=== PATIENT | female | born 1950 | race African-American/Black ===

== ENCOUNTER 2019-01-16 18:07 | Inpatient (IN) | payer MEDICARE ==
--- NOTE | 2019-01-16 18:52 | ED Physician Chart ---
ED Chief Complaint/HPI - Patient Information Date Seen:: 01/16/19 Time Seen:: 18:20 Chief Complaint:: Depression History of Present Illness:: onset x 2 days of depression and decreased activity; no report of trauma, SIs, H /As, S/T, neck pain, C/P, SOB, Abd. Pain, A/N/V/D/C, fever, chills, or urinary s /s Allergies:: Allergies Allergy/AdvReac Type Severity Reaction Status Date / Time No Known Allergies Allergy Verified 01/16/19 18:21 Vitals:: Vital Signs - 8 hr 01/16/19 18:21 Temp 98.1 F HR 84 RR 17 BP 129/71 O2 Sat % 94 Historian:: Patient, EMS Review:: Nurse's Note Reviewed, Old Chart Reviewed, EMS run form Reviewed ED Review of Systems - Review of Systems General/Constitutional: No fever, No chills, No weight loss, No weakness, No diaphoresis, No edema, No loss of appetite Skin: No skin lesions, No rash, No bruising Head: No headache, No light-headedness Eyes: No loss of vision, No pain, No diplopia ENT: No earache, No nasal drainage, No sore throat, No tinnitus Neck: No neck pain, No swelling, No thyromegaly, No stiffness, No mass noted Cardio Vascular: No chest pain, No palpitations, No PND, No orthopnea, No edema Pulmonary: No SOB, No cough, No sputum, No wheezing GI: No nausea, No vomiting, No diarrhea, No pain, No melena, No hematochezia, No constipation, No hematemesis G/U: No dysuria, No frequency, No hematuria, No nacturia Safety Sealer: No vaginal discharge, No abnormal vaginal bleed, No contraction Musculoskeletal: No bone or joint pain, No back pain, No muscle pain Endocrine: No polyuria, No polydipsia Psychiatric: Prior psych history, Depression, Anxiety, No suicidal ideation, No homicidal ideation, No auditory hallucination, No visual hallucination Hematopoietic: No bruising, No lymphadenopathy Allergic/Immuno: No urticaria, No angioedema Neurological: No syncope, No focal symptoms, No weakness, No paresthesia, No headache, Seizure, No dizziness, No confusion, No vertigo ED Past Medical History - Past Medical History Obtainable: Yes Past Medical History: HTN, Seizures Family History: HTN Social History: Non Smoker, No Alcohol, No Drug Use, Single, Care Facility Surgical History: None Psychiatricy History: Depression Medication: Reviewed Family Medical History - Family Member Mother History Unknown: Yes ED Physical Exam - Physical Examination General/Constitutional: Awake, Well-developed, well-nourished, Alert, No distress, GCS 15, Non-toxic appearing, Ambulatory Head: Atraumatic Eyes: Lids, conjuctiva normal, PERRL, EOMI Skin: Nl inspection, No rash, No skin lesions, No ecchymosis, Well hydrated, No lymphadenopathy ENMT: External ears, nose nl, TM canals nl, Nasal exam nl, Lips, teeth, gums nl , Oropharynx nl, Tonsils nl Neck: Nontender, Full ROM w/o pain, No JVD, No nuchal rigidity, No bruit, No mass, No stridor Respiratory: Nl effort/Exclusion, Clear to Auscultation, No Wheeze/Rhonchi/Rales Cardio Vascular: RRR, No murmur, gallop, rubs, NL S1 S2, Carotid/Femoral/Distal pulses equal bilaterally GI: No tenderness/rebounding/guarding, No organomegaly, No hernia, Normal BS's, Nondistended, No mass/bruits, No McBurney tenderness : No CVA tenderness Extremities: No tenderness or effusion, Full ROM, normal strength in all extremities, No edema, Normal digits & nails Neuro/Psych: Alert/oriented, DTR's symmetric, Normal sensory exam, Normal motor strength, Judgement/insight normal, Mood normal, Normal gait, No focal deficits Other Neuro/Psych comments:: + Psychomotor Retardation; no SIs; Mood/Affect: Labile Misc: Normal back, No paraspinal tenderness ED Septic Shock - . Is Septic Shock (SBP<90, OR Lactate>4 mmol\L) present?: No - <6hrs of presentation: Vital Signs: Vital Signs - 8 hr 01/16/19 18:21 Temp 98.1 F HR 84 RR 17 BP 129/71 O2 Sat % 94 ED Reassessment (Disposition) - Reassessment Reassessment Condition:: Improved - Diagnosis Diagnosis:: Depression; Medical Clearance
[2019-01-16 19:00] LABS: % BASOPHILS 0.3 % (0.0-2.0); % EOSINOPHILS 5.1 % (0.0-5.0); % LYMPHOCYTES 26.1 % (20.0-50.0); % MONOCYTES 7.6 % (2.0-10.0); % NEUTROPHILS 60.9 % (40.0-80.0); EOSINOPHILE ABSOLUTE 0.3 Th/cmm (0.1-0.4); HEMATOCRIT 38.4 % (41.0-60); HEMOGLOBIN 12.8 gm/dL (12-16); LYMPHOCYTE ABSOLUTE 1.6 Th/cmm (1.5-3.0); MEAN CELL VOLUME 88.2 fl (81-100); MEAN CORPUSCULAR HEMOGLOBIN 29.4 pg (27.0-31.0); MEAN CORPUSCULAR HGB CONC 33.4 pg (28.0-36.0); MONOCYTE ABSOLUTE 0.5 Th/cmm (0.3-1.0); NEUTROPHILE ABSOLUTE 3.9 Th/cmm (1.8-8.0); PLATELET COUNT 256 Th/cmm (150-400); RED BLOOD COUNT 4.35 Mil/cmm (3.80-5.20); RED CELL DISTRIBUTION WIDTH 12.7 % (11.5-20.0); WHITE BLOOD COUNT 6.3 Th/cmm (4.8-10.8)
[2019-01-16 19:21] LABS: ALB/GLOB RATIO 1.1 (1.0-1.8); ALBUMIN 3.4 gm/dL (3.7-5.3); ALKALINE PHOSPHATASE 103 U/L (34-104); ANION GAP 10.6 (7.0-16.0); BILIRUBIN,TOTAL 0.2 mg/dL (0.3-1.0); BUN - UREA NITROGEN 11 mg/dL (7-25); CALCIUM SERUM 8.9 mg/dL (8.6-10.3); CARBON DIOXIDE 27.1 mEq/L (21.0-31.0); CHLORIDE 104 mEq/L (98-107); CHOLESTEROL 155 mg/dL (<200); CREATININE - SERUM 0.5 mg/dL (0.6-1.2); GFR AFRICAN-AMERICAN > 60.0 ml/min (>90); GFR NON AFRICAN-AMERICAN > 60.0 ml/min; GLUCOSE 112 mg/dL (70-105); HDL -HIGH DENSITY LIPOPROTEIN 54 mg/dL (23-92); POTASSIUM SERUM 3.7 mEq/L (3.5-5.1); SGOT 12 U/L (13-39); SGPT/ALT 5 U/L (7-52); SODIUM SERUM 138 mEq/L (136-145); TOTAL PROTEIN,SERUM 6.6 gm/dL (6.0-8.3); TRIGLYCERIDES 87 mg/dL (<150)
[2019-01-16 19:22] LABS: ACETAMINOPHEN < 10.0 ug/mL (10.0-30.0)
[2019-01-16] MEDS ORDERED: Maalox 30 mL Cup PO PRN (21:37)
[2019-01-16] MEDS ORDERED: Magnesium Hydroxide (MOM) 30 mL UDC PO PRN (21:37)
[2019-01-16 21:54] VITALS: BP 124/71
[2019-01-17] MEDS: Levothyroxine 0.088 Mg Tab PO SCH (06:44)
[2019-01-17 08:08] LABS: A1C 5.7 % (4.8-5.6)
[2019-01-17] MEDS: Multivitamin w/ Minerals Tab PO SCH (08:55)
[2019-01-17] MEDS ORDERED: PRUNE JUICE PO SCH (09:00)
--- NOTE | 2019-01-17 16:32 | Psychiatric Evaluation ---
DATE OF SERVICE: 01/17/2019 IDENTIFYING INFORMATION: The patient is a 68-year-old female. CHIEF COMPLAINT: "I don't know." HISTORY OF PRESENT ILLNESS: The patient was referred for admission because of depression. The patient was a very poor historian. She is not sure why she is here. She is unable to participate in any meaningful conversation. Apparently, she is blind, she was unsure of the date of her age, if she has children or why she is here. According to records, there is history of depression. The patient has been on gabapentin 300 mg 3 times a day, amantadine 100 mg daily, levothyroxine, Keppra with a history of seizure disorder, Namenda 5 mg twice a day, multivitamin, Risperdal 0.5 mg daily and 1 mg at bedtime. PAST PSYCHIATRIC HISTORY: The patient unable to give any information. MEDICAL HISTORY: Deferred to the medical dr The patient is blind, has a seizure disorder, hypothyroidism and possible parkinsonism. ALLERGIES: She has had no known drug allergy. FAMILY AND SOCIAL HISTORY: The patient is unable to tell me, she is unable to participate in meaningful conversation. MENTAL STATUS EXAMINATION: The patient is appropriately dressed. She is in bed. She was alert, but she was unable to engage in any information. She does not report anything every question she does not know, does not know if she has children, if she is or the date, where she is, why she is here, what she does for living. Her long and short term memory is poor. Insight and judgment is impaired. I was unable to do a formal mental status exam on her because of her dementia and confusion. Her insight and judgment is impaired. IMPRESSION: Psychosis, not otherwise specified, rule out depression with psychosis. MEDICAL DIAGNOSES: Deferred to the medical doctor. PLAN: The patient will continue with the medication. We will do group therapy, milieu therapy, and individual therapy. ESTIMATED LENGTH OF STAY: 3-7 days. DISCHARGE CRITERIA: Decreasing agitation, psychosis, depression after discharge. JOB# [id number] WALTER
--- NOTE | 2019-01-17 20:24 | Consultation ---
DATE OF CONSULTATION: INTERNAL MEDICINE CONSULTATION REFERRING PHYSICIAN: Dr. Pearl. REASON FOR CONSULTATION: Medical management. HISTORY OF PRESENT ILLNESS: This is a 68-year-old -[place] female with history of mood psych disorder, Parkinson's disease, hypothyroidism, essential hypertension, seizure disorder, recurrent ileus, who was transferred to this facility via the ER for psych decompensation. The patient resides at [facility] and overall she is a poor historian and unable to provide me with any major history. The patient states that she feels well and that she does not have any medical problems. PAST MEDICAL HISTORY: As noted above. Chronic ileus and history of small-bowel obstruction. PAST SURGICAL HISTORY: Unknown, but none reported. FAMILY HISTORY: Likely noncontributory to this admission. SOCIAL HISTORY: There is no report of smoking, ETOH, or illicit drug usage. She lives at a care facility. ALLERGIES: NKDA. OUTPATIENT MEDICATIONS: Milk of magnesia 30 mL every day, amantadine 100 mg every day, Cogentin 0.5 b.i.d., Dulcolax 10 mg suppository daily as needed, Sinemet 25-100 t.i.d., Colace 100 mg b.i.d., gabapentin 300 t.i.d., Vimpat 200 mg b.i.d., Keppra 1500 mg b.i.d., Synthroid 88 mcg every day, loratadine 10 mg every day, Namenda 5 mg b.i.d., metoprolol 12.5 mg q.12 hours, multivitamins every day, Risperdal 0.5 every day. REVIEW OF SYSTEMS: CONSTITUTIONAL: The patient denies any fever or chills. No recent ailments. CARDIOVASCULAR: Denies any chest pain, palpitations. PULMONARY: Denies any cough or phlegm production, shortness of breath. GASTROINTESTINAL: Denies any constipation, any abdominal pain, any nausea, vomiting, diarrhea. GENITOURINARY: No bladder habit changes including no UTI symptomatology. NEUROLOGIC: Denies any recent seizure activity. Denies any syncope. PHYSICAL EXAMINATION: VITAL SIGNS: Temperature 98.2, pulse 85, respirations 20, BP 113/70, satting 97% on room air. GENERAL: She is a well-developed mildly obese female, who is currently lying in bed, nontoxic appearing. The patient is able to answer simple questions with yes and no. HEAD: Normocephalic, atraumatic. NECK: There is no JVD or LAD. CARDIAC: Regular rate and rhythm with no murmurs. S1, S2 are present. No murmurs are appreciated. LUNGS: Clear to auscultation bilaterally. ABDOMEN: Soft, supple, nontender, nondistended, normoactive bowel sounds. EXTREMITIES: On lower extremities, he has no pedal edema. NEUROLOGIC: Grossly nonfocal with cranial nerves 2-12 are within normal limits. Full exam cannot be done at this time. LABORATORY DATA: CBC was essentially within normal limits. Chem-7 shows a glucose of 112, otherwise within normal limits. LFTs were within normal limits. Troponins were negative x 1 set. Albumin 3.4. DIAGNOSTICS: EKG, sinus rhythm at a rate of 76. ASSESSMENT: 1. Acute psych decompensation. 2. History of psychosis/mood disorder. 3. Parkinson's disease. 4. Seizure disorder. 5. Legally blind. 6. History of small bowel obstruction/chronic ileus. 7. Essential hypertension. 8. Hypothyroidism. 9. Chronic physical debility. PLAN: The patient has been admitted to [facility] for management and care. The patient will be kept on all her current home meds as scheduled. We will follow UA results which have not been collected yet. JOB# [id number]
[2019-01-18] MEDS: Levothyroxine 0.088 Mg Tab PO SCH (06:57)
[2019-01-18] MEDS: Multivitamin w/ Minerals Tab PO SCH (08:37)
--- NOTE | 2019-01-18 14:48 | Progress Notes ---
DATE: 01/18/2019 Case was discussed with staff of the patient, reviewed records. The patient continues to isolate herself, staying in her room. She is unable to participate in meaningful conversation, though she is able to stay more than "I don't know today." No side effects to the medication, no sedation, no nausea, no extrapyramidal symptoms. We will continue to work with the patient in group therapy, milieu therapy, and adjust medications as needed. [facility]# [id number]
[2019-01-19] MEDS: Levothyroxine 0.088 Mg Tab PO SCH (06:55)
[2019-01-19] MEDS: Multivitamin w/ Minerals Tab PO SCH (09:33)
--- NOTE | 2019-01-19 10:29 | Internal Medicine Prog Note ---
Internal Medicine Subjective - Subjective Service Date: 01/19/19 (COMFORTABLE, NO ACUTE EVENTS) Patient seen and examined:: without staff Patient is:: awake Per staff patient has:: no adverse event Internal Medicine Objective - Results Result Diagrams: 01/16/19 18:45 01/16/19 18:45 Recent Labs: Laboratory Last Values WBC 6.3 Th/cmm (4.8-10.8) 01/16/19 18:45 RBC 4.35 Mil/cmm (3.80-5.20) 01/16/19 18:45 Hgb 12.8 gm/dL (12-16) 01/16/19 18:45 Hct 38.4 % (41.0-60) L 01/16/19 18:45 MCV 88.2 fl (81-100) 01/16/19 18:45 MCH 29.4 pg (27.0-31.0) 01/16/19 18:45 MCHC Differential 33.4 pg (28.0-36.0) 01/16/19 18:45 RDW 12.7 % (11.5-20.0) 01/16/19 18:45 Plt Count 256 Th/cmm (150-400) 01/16/19 18:45 MPV 8.8 fl 01/16/19 18:45 Neutrophils % 60.9 % (40.0-80.0) 01/16/19 18:45 Lymphocytes % 26.1 % (20.0-50.0) 01/16/19 18:45 Monocytes % 7.6 % (2.0-10.0) 01/16/19 18:45 Eosinophils % 5.1 % (0.0-5.0) H 01/16/19 18:45 Basophils % 0.3 % (0.0-2.0) 01/16/19 18:45 Sodium 138 mEq/L (136-145) 01/16/19 18:45 Potassium 3.7 mEq/L (3.5-5.1) 01/16/19 18:45 Chloride 104 mEq/L (98-107) 01/16/19 18:45 Carbon Dioxide 27.1 mEq/L (21.0-31.0) 01/16/19 18:45 Anion Gap 10.6 (7.0-16.0) 01/16/19 18:45 BUN 11 mg/dL (7-25) 01/16/19 18:45 Creatinine 0.5 mg/dL (0.6-1.2) L 01/16/19 18:45 Est GFR ( Amer) > 60.0 ml/min (>90) 01/16/19 18:45 Est GFR (Non-Af Amer) > 60.0 ml/min 01/16/19 18:45 BUN/Creatinine Ratio 22.0 01/16/19 18:45 Glucose 112 mg/dL (70-105) H 01/16/19 18:45 Calcium 8.9 mg/dL (8.6-10.3) 01/16/19 18:45 Total Bilirubin 0.2 mg/dL (0.3-1.0) L 01/16/19 18:45 AST 12 U/L (13-39) L 01/16/19 18:45 ALT 5 U/L (7-52) L 01/16/19 18:45 Alkaline Phosphatase 103 U/L (34-104) 01/16/19 18:45 Troponin I < 0.01 ng/mL (0.01-0.05) L 01/16/19 18:45 Total Protein 6.6 gm/dL (6.0-8.3) 01/16/19 18:45 Albumin 3.4 gm/dL (3.7-5.3) L 01/16/19 18:45 Globulin 3.2 gm/dL 01/16/19 18:45 Albumin/Globulin Ratio 1.1 (1.0-1.8) 01/16/19 18:45 Triglycerides 87 mg/dL (<150) 01/16/19 18:45 Cholesterol 155 mg/dL (<200) 01/16/19 18:45 LDL Cholesterol Direct 91 mg/dL (75-193) 01/16/19 18:45 HDL Cholesterol 54 mg/dL (23-92) 01/16/19 18:45 TSH 0.63 uIU/ml (0.34-5.60) 01/16/19 18:45 Salicylates < 25.0 mg/L (30.0-100.0) L 01/16/19 18:45 Acetaminophen < 10.0 ug/mL (10.0-30.0) L 01/16/19 18:45 Ethyl Alcohol < 10 mg/dL (0-10) 01/16/19 18:45 - Physical Exam Vitals and I&O: Vital Signs Temp 98.2 F 01/19/19 06:40 Pulse 67 01/19/19 09:33 Resp 20 01/19/19 06:40 BP 95/58 01/19/19 09:33 Pulse Ox 99 01/19/19 06:40 Intake & Output 01/18/19 01/19/19 01/19/19 18:59 06:59 18:59 Intake Total 950 120 Balance 950 120 Intake: Oral 950 120 Other: # Voids 3 3 # Bowel Movements 1 0 Active Medications: Current Medications Acetaminophen (Tylenol) 650 mg PO Q4HR PRN PRN Reason: Mild Pain / Temp above 100 Stop: 03/17/19 21:36 Al Hydrox/Mg Hydrox/Simethicone (Maalox) 30 ml PO Q4HR PRN PRN Reason: GI DISTRESS Stop: 03/17/19 21:36 Amantadine HCl (Symmetrel) 100 mg PO DAILY [facility] Stop: 03/18/19 08:59 Last Admin: 01/19/19 09:32 Dose: 100 mg Benztropine Mesylate (Cogentin) 0.5 mg PO BID [facility] Stop: 03/18/19 08:59 Last Admin: 01/19/19 09:33 Dose: 0.5 mg Bisacodyl (Dulcolax 10 Mg Supp) 10 mg RC DAILY PRN PRN Reason: IF MOM INEFFECTIVE Stop: 03/17/19 21:46 Carbidopa/Levodopa (Sinemet 25mg-100 Mg) 1 tab PO TID [facility] Stop: 03/18/19 08:59 Last Admin: 01/19/19 09:33 Dose: 1 tab Docusate Sodium (Colace) 100 mg PO BID [facility] Stop: 03/18/19 08:59 Last Admin: 01/19/19 09:32 Dose: 100 mg Gabapentin (Neurontin) 300 mg PO TID [facility] Stop: 03/18/19 08:59 Last Admin: 01/19/19 09:32 Dose: 300 mg Lacosamide (Vimpat) 200 mg PO BID [facility] Stop: 03/18/19 08:59 Last Admin: 01/19/19 09:32 Dose: 200 mg Levetiracetam (Keppra) 1,500 mg PO BID [facility] Stop: 03/18/19 08:59 Last Admin: 01/19/19 09:32 Dose: 1,500 mg Levothyroxine Sodium (Synthroid) 0.088 mg PO QDAC [facility] Stop: 03/18/19 07:29 Last Admin: 01/19/19 06:55 Dose: 0.088 mg Loratadine (Claritin) 10 mg PO DAILY [facility] Stop: 03/18/19 08:59 Last Admin: 01/19/19 09:33 Dose: 10 mg Lorazepam (Ativan) 0.5 mg PO Q4HR PRN; Protocol PRN Reason: Agitation Stop: 02/15/19 21:36 Magnesium Hydroxide (Milk Of Magnesia) 30 ml PO HS PRN PRN Reason: Constipation Memantine (Namenda) 10 mg PO BID [facility]BY Stop: 03/20/19 08:59 Last Admin: 01/19/19 09:33 Dose: 10 mg Metoprolol Tartrate (Lopressor) 12.5 mg PO Q12HR GABBY Stop: 03/18/19 08:59 Last Admin: 01/19/19 09:33 Dose: Not Given Risperidone (Risperdal) 0.5 mg PO DAILY [facility]; Protocol Stop: 03/18/19 08:59 Last Admin: 01/19/19 09:33 Dose: 0.5 mg Risperidone (Risperdal) 1 mg PO HS GABBY; Protocol Stop: 03/18/19 20:59 Last Admin: 01/18/19 21:15 Dose: 1 mg Zolpidem Tartrate (Ambien) 5 mg PO HS PRN PRN Reason: Insomnia General: alert HEENT: NC/AT Neck: Supple, No JVD, No thyromegaly, No LAD Lungs: CTAB, no congested Cardiovascular: RRR, Normal S1, Normal S2, without murmur Abdomen: soft, non-tender, tender, thin, non-distended, positive bowel sound Extremities: clear Neurological: no change Internal Medicine Assmt/Plan - Assessment Assessment: ACUTE PSYCH DECOMPENSATION HX OF BIPOLAR DO ESSENTIAL HTN HISTORY OF PARKINSON'S DZ LEGALLY BLIND HISTORY OF ILEUS HISTORY OF DEMENTIA HISTORY OF HYPOTHYROIDISM - Plan Plan: CONT WITH CURRENT INPT PSYCH SUPPORTIVE CARE AND MGT CONT WITH OTHER MEDS SCHEDULED
--- NOTE | 2019-01-19 19:58 | Progress Notes ---
DATE: 01/19/2019 SUBJECTIVE: Chart reviewed and the patient interviewed. Also discussed the patient's condition with the staff and reviewed records and labs. The patient is still anxious and is still in irritable mood. The patient is still having difficulty following directions. The patient also wants to be left alone and she is staying by herself in the room all the time. She also is still confused and she is still restless. Otherwise, the patient continued to take Risperdal 0.5 mg in the morning and 1 mg at bedtime as well as Namenda and Cogentin with no side effects. ASSESSMENT: The patient is still confused and still has difficulty making any sense. TREATMENT PLAN: We will continue to monitor behavior and condition closely. Also, continue adjusting psychotropic medications and work on behavioral modification. Also, we will increase Namenda to 10 mg twice a day and we will continue to follow up. [facility]# [id number]
[2019-01-20] MEDS: Levothyroxine 0.088 Mg Tab PO SCH (06:41)
--- NOTE | 2019-01-20 09:21 | Internal Medicine Prog Note ---
Internal Medicine Subjective - Subjective Service Date: 01/20/19 (COMFORTABLE) Patient is:: awake Per staff patient has:: no adverse event Internal Medicine Objective - Results Result Diagrams: 01/16/19 18:45 01/16/19 18:45 Recent Labs: Laboratory Last Values WBC 6.3 Th/cmm (4.8-10.8) 01/16/19 18:45 RBC 4.35 Mil/cmm (3.80-5.20) 01/16/19 18:45 Hgb 12.8 gm/dL (12-16) 01/16/19 18:45 Hct 38.4 % (41.0-60) L 01/16/19 18:45 MCV 88.2 fl (81-100) 01/16/19 18:45 MCH 29.4 pg (27.0-31.0) 01/16/19 18:45 MCHC Differential 33.4 pg (28.0-36.0) 01/16/19 18:45 RDW 12.7 % (11.5-20.0) 01/16/19 18:45 Plt Count 256 Th/cmm (150-400) 01/16/19 18:45 MPV 8.8 fl 01/16/19 18:45 Neutrophils % 60.9 % (40.0-80.0) 01/16/19 18:45 Lymphocytes % 26.1 % (20.0-50.0) 01/16/19 18:45 Monocytes % 7.6 % (2.0-10.0) 01/16/19 18:45 Eosinophils % 5.1 % (0.0-5.0) H 01/16/19 18:45 Basophils % 0.3 % (0.0-2.0) 01/16/19 18:45 Sodium 138 mEq/L (136-145) 01/16/19 18:45 Potassium 3.7 mEq/L (3.5-5.1) 01/16/19 18:45 Chloride 104 mEq/L (98-107) 01/16/19 18:45 Carbon Dioxide 27.1 mEq/L (21.0-31.0) 01/16/19 18:45 Anion Gap 10.6 (7.0-16.0) 01/16/19 18:45 BUN 11 mg/dL (7-25) 01/16/19 18:45 Creatinine 0.5 mg/dL (0.6-1.2) L 01/16/19 18:45 Est GFR ( Amer) > 60.0 ml/min (>90) 01/16/19 18:45 Est GFR (Non-Af Amer) > 60.0 ml/min 01/16/19 18:45 BUN/Creatinine Ratio 22.0 01/16/19 18:45 Glucose 112 mg/dL (70-105) H 01/16/19 18:45 Calcium 8.9 mg/dL (8.6-10.3) 01/16/19 18:45 Total Bilirubin 0.2 mg/dL (0.3-1.0) L 01/16/19 18:45 AST 12 U/L (13-39) L 01/16/19 18:45 ALT 5 U/L (7-52) L 01/16/19 18:45 Alkaline Phosphatase 103 U/L (34-104) 01/16/19 18:45 Troponin I < 0.01 ng/mL (0.01-0.05) L 01/16/19 18:45 Total Protein 6.6 gm/dL (6.0-8.3) 01/16/19 18:45 Albumin 3.4 gm/dL (3.7-5.3) L 01/16/19 18:45 Globulin 3.2 gm/dL 01/16/19 18:45 Albumin/Globulin Ratio 1.1 (1.0-1.8) 01/16/19 18:45 Triglycerides 87 mg/dL (<150) 01/16/19 18:45 Cholesterol 155 mg/dL (<200) 01/16/19 18:45 LDL Cholesterol Direct 91 mg/dL (75-193) 01/16/19 18:45 HDL Cholesterol 54 mg/dL (23-92) 01/16/19 18:45 TSH 0.63 uIU/ml (0.34-5.60) 01/16/19 18:45 Salicylates < 25.0 mg/L (30.0-100.0) L 01/16/19 18:45 Acetaminophen < 10.0 ug/mL (10.0-30.0) L 01/16/19 18:45 Ethyl Alcohol < 10 mg/dL (0-10) 01/16/19 18:45 - Physical Exam Vitals and I&O: Vital Signs Temp 97.7 F 01/20/19 05:50 Pulse 79 01/20/19 05:50 Resp 19 01/20/19 05:50 BP 109/67 01/20/19 05:50 Pulse Ox 98 01/20/19 05:50 Intake & Output 01/19/19 01/20/19 01/20/19 18:59 06:59 18:59 Intake Total 850 240 Output Total 1 Balance 850 239 Intake: Oral 850 240 Output: Urine/Stool Mix 1 Other: # Voids 4 3 # Bowel Movements 0 0 Active Medications: Current Medications Acetaminophen (Tylenol) 650 mg PO Q4HR PRN PRN Reason: Mild Pain / Temp above 100 Stop: 03/17/19 21:36 Al Hydrox/Mg Hydrox/Simethicone (Maalox) 30 ml PO Q4HR PRN PRN Reason: GI DISTRESS Stop: 03/17/19 21:36 Amantadine HCl (Symmetrel) 100 mg PO DAILY [facility] Stop: 03/18/19 08:59 Last Admin: 01/19/19 09:32 Dose: 100 mg Benztropine Mesylate (Cogentin) 0.5 mg PO BID [facility] Stop: 03/18/19 08:59 Last Admin: 01/19/19 17:08 Dose: 0.5 mg Bisacodyl (Dulcolax 10 Mg Supp) 10 mg RC DAILY PRN PRN Reason: IF MOM INEFFECTIVE Stop: 03/17/19 21:46 Carbidopa/Levodopa (Sinemet 25mg-100 Mg) 1 tab PO TID [facility] Stop: 03/18/19 08:59 Last Admin: 01/19/19 21:06 Dose: 1 tab Docusate Sodium (Colace) 100 mg PO BID [facility] Stop: 03/18/19 08:59 Last Admin: 01/19/19 17:07 Dose: 100 mg Gabapentin (Neurontin) 300 mg PO TID [facility] Stop: 03/18/19 08:59 Last Admin: 01/19/19 21:06 Dose: 300 mg Lacosamide (Vimpat) 200 mg PO BID [facility] Stop: 03/18/19 08:59 Last Admin: 01/19/19 17:08 Dose: 200 mg Levetiracetam (Keppra) 1,500 mg PO BID [facility] Stop: 03/18/19 08:59 Last Admin: 01/19/19 17:07 Dose: 1,500 mg Levothyroxine Sodium (Synthroid) 0.088 mg PO QDAC [facility] Stop: 03/18/19 07:29 Last Admin: 01/20/19 06:41 Dose: 0.088 mg Loratadine (Claritin) 10 mg PO DAILY [facility] Stop: 03/18/19 08:59 Last Admin: 01/19/19 09:33 Dose: 10 mg Lorazepam (Ativan) 0.5 mg PO Q4HR PRN; Protocol PRN Reason: Agitation Stop: 02/15/19 21:36 Magnesium Hydroxide (Milk Of Magnesia) 30 ml PO HS PRN PRN Reason: Constipation Memantine (Namenda) 10 mg PO BID [facility] Stop: 03/20/19 08:59 Last Admin: 01/19/19 17:08 Dose: 10 mg Metoprolol Tartrate (Lopressor) 12.5 mg PO Q12HR [facility] Stop: 03/18/19 08:59 Last Admin: 01/19/19 21:04 Dose: Not Given Risperidone (Risperdal) 0.5 mg PO DAILY [facility]; Protocol Stop: 03/18/19 08:59 Last Admin: 01/19/19 09:33 Dose: 0.5 mg Risperidone (Risperdal) 1 mg PO HS [facility]; Protocol Stop: 03/18/19 20:59 Last Admin: 01/19/19 21:06 Dose: 1 mg Zolpidem Tartrate (Ambien) 5 mg PO HS PRN PRN Reason: Insomnia General: alert HEENT: NC/AT Neck: Supple, No JVD, No thyromegaly, No LAD Lungs: CTAB, no congested Cardiovascular: RRR, Normal S1, Normal S2, without murmur Abdomen: soft, non-tender, tender, thin, non-distended, positive bowel sound Extremities: clear Neurological: no change Internal Medicine Assmt/Plan - Assessment Assessment: ACUTE PSYCH DECOMPENSATION HX OF BIPOLAR DO ESSENTIAL HTN-stable. HISTORY OF PARKINSON'S DZ LEGALLY BLIND HISTORY OF ILEUS HISTORY OF DEMENTIA HISTORY OF HYPOTHYROIDISM - Plan Plan: CONT WITH CURRENT INPT PSYCH SUPPORTIVE CARE AND MGT CONT WITH OTHER MEDS SCHEDULED Nutritional Asmnt/Malnutr-PDOC - Dietary Evaluation Malnutrition Findings (Please click <Entered> for more info): Nutritional Asmnt/Malnutrition Start: 01/19/19 11: 29 Text: Status: Complete Freq: Protocol: Document 01/19/19 11:30 BRENDA (Rec: 01/19/19 11:35 BRENDA [email or web address]) Nutritional Asmnt/Malnutrition Patient General Information Nutritional Screening Moderate Risk Diagnosis Psychosis Pertinent Medical Hx/Surgical Hx HTN, Seizures Subjective Information Pt is a 68-year-old female admitted on 01/16 c/o depression and decreased activity x 2 days. Per Meal/ Nutrition Activity Record, Pt PO intake 70% meals x 2 days. HT: 53 WT: 235 LB (106.82 kg) ADJ BW: 74.17 kg BMI: 41.63 (Morbid Obese) GI: Soft, Non-Tender BM: 01/18 x1 I/O: 1070/Not Noted Skin: WNL, Intact Sascha: 20 Diet Order: Mechanical Soft, TONYA Estimated Energy Needs: (Obese III, CBW) 7920-0870 kcals (20-25 kcals/ kg) 59-67g Pro (0.8-0.9 g/kg) 3578-8341 ml (25-30 ml/kg) Pt PO intake 70% meals x 2 days Per Meal/Nutrition Activity Record. Dietary is currently providing an estimated 2289 kcals and 114 gm Pro, per Pt PO intake this is providing an estimated 1600 kcals and 80 gm Pro to meet 100% kcal and 100+% Pro needs- Adequate. Current Diet Order/ Nutrition Support Mechanical Soft, TONYA Pertinent Medications Maalox (PRN), Dulcolax (PRN), Colace, Keppra, Synthroid, MOM (PRN), Lopressor Pertinent Labs 01/16: Hgb/Hct 12.8/38.4, BUN/ Cr 11/0.5, Glucose 112, Alb 3. 4 Nutritional Hx/Data Height 1.6 m Height (Calculated Centimeters) 160.0 Current Weight (lbs) 106.594 kg Weight (Calculated Kilograms) 106.6 Weight (Calculated Grams) 019784.2 [place] Body Weight 52.4 kg % [place] Body Weight 204 Body Mass Index (BMI) 41.6 Weight Status Morbidly Obese GI Symptoms GI Symptoms None Skin Integrity/Comment: WNL, Intact Sascha: 20 Current %PO Fair (50-74%) Estimated Nutritional Goals BEE in Kcals: Adj wt of IBW Calories/Kcals/Kg 20-25 Kcals Calculated 8178-8724 Protein: Adj wt of IBW Protein g/k.8-0.9 Protein Calculated 59-67 Fluid: ml 6744-7619 ml (25-30 ml/kg) Nutritional Problem No current Nutrition Prob Problem N/A Etiology N/A Signs/Symptoms: N/A Malnutrition Related to Morbid Obesity Malnutrition related to morbid obesity No Intervention/Recommendation Comments 1.Continue with mechanical soft, TONYA diet as ordered. Expected Outcomes/Goals Expected Outcomes/Goals 1.PO intake to continue to meet 75% of nutritional needs. 2.Monitor PO intake, wt, nutrition related labs, and skin integrity. 3.F/U as low risk in 7 days,
[2019-01-20] MEDS: Multivitamin w/ Minerals Tab PO SCH (09:50)
--- NOTE | 2019-01-20 21:59 | Progress Notes ---
DATE: 01/20/2019 SUBJECTIVE: Chart reviewed and the patient interviewed. Also discussed the patient's condition with the staff and reviewed records and labs. The patient seems to be slightly calmer, but she is in a depressed mood. The patient also is still socially withdrawn and interacting minimally with others. The patient also still has difficulty following staff directions and she is still forgetful. Otherwise, the patient continued to comply with taking her medications with no side effects of medications. ASSESSMENT: The patient is still psychotic and is still depressed. TREATMENT PLAN: Continue to monitor behavior and condition closely. Also, continue Risperdal 0.5 mg in the morning and 1 mg at bedtime as well as Namenda 10 mg twice a day and continue to follow up. [facility]# [id number]
[2019-01-21] MEDS: Levothyroxine 0.088 Mg Tab PO SCH (06:45)
[2019-01-21] MEDS: Multivitamin w/ Minerals Tab PO SCH (08:53)
--- NOTE | 2019-01-21 09:29 | Internal Medicine Prog Note ---
Internal Medicine Subjective - Subjective Service Date: 01/21/19 (NO EVENTS) Patient seen and examined:: without staff Patient is:: awake Per staff patient has:: no adverse event Internal Medicine Objective - Results Result Diagrams: 01/16/19 18:45 01/16/19 18:45 Recent Labs: Laboratory Last Values WBC 6.3 Th/cmm (4.8-10.8) 01/16/19 18:45 RBC 4.35 Mil/cmm (3.80-5.20) 01/16/19 18:45 Hgb 12.8 gm/dL (12-16) 01/16/19 18:45 Hct 38.4 % (41.0-60) L 01/16/19 18:45 MCV 88.2 fl (81-100) 01/16/19 18:45 MCH 29.4 pg (27.0-31.0) 01/16/19 18:45 MCHC Differential 33.4 pg (28.0-36.0) 01/16/19 18:45 RDW 12.7 % (11.5-20.0) 01/16/19 18:45 Plt Count 256 Th/cmm (150-400) 01/16/19 18:45 MPV 8.8 fl 01/16/19 18:45 Neutrophils % 60.9 % (40.0-80.0) 01/16/19 18:45 Lymphocytes % 26.1 % (20.0-50.0) 01/16/19 18:45 Monocytes % 7.6 % (2.0-10.0) 01/16/19 18:45 Eosinophils % 5.1 % (0.0-5.0) H 01/16/19 18:45 Basophils % 0.3 % (0.0-2.0) 01/16/19 18:45 Sodium 138 mEq/L (136-145) 01/16/19 18:45 Potassium 3.7 mEq/L (3.5-5.1) 01/16/19 18:45 Chloride 104 mEq/L (98-107) 01/16/19 18:45 Carbon Dioxide 27.1 mEq/L (21.0-31.0) 01/16/19 18:45 Anion Gap 10.6 (7.0-16.0) 01/16/19 18:45 BUN 11 mg/dL (7-25) 01/16/19 18:45 Creatinine 0.5 mg/dL (0.6-1.2) L 01/16/19 18:45 Est GFR ( Amer) > 60.0 ml/min (>90) 01/16/19 18:45 Est GFR (Non-Af Amer) > 60.0 ml/min 01/16/19 18:45 BUN/Creatinine Ratio 22.0 01/16/19 18:45 Glucose 112 mg/dL (70-105) H 01/16/19 18:45 Calcium 8.9 mg/dL (8.6-10.3) 01/16/19 18:45 Total Bilirubin 0.2 mg/dL (0.3-1.0) L 01/16/19 18:45 AST 12 U/L (13-39) L 01/16/19 18:45 ALT 5 U/L (7-52) L 01/16/19 18:45 Alkaline Phosphatase 103 U/L (34-104) 01/16/19 18:45 Troponin I < 0.01 ng/mL (0.01-0.05) L 01/16/19 18:45 Total Protein 6.6 gm/dL (6.0-8.3) 01/16/19 18:45 Albumin 3.4 gm/dL (3.7-5.3) L 01/16/19 18:45 Globulin 3.2 gm/dL 01/16/19 18:45 Albumin/Globulin Ratio 1.1 (1.0-1.8) 01/16/19 18:45 Triglycerides 87 mg/dL (<150) 01/16/19 18:45 Cholesterol 155 mg/dL (<200) 01/16/19 18:45 LDL Cholesterol Direct 91 mg/dL (75-193) 01/16/19 18:45 HDL Cholesterol 54 mg/dL (23-92) 01/16/19 18:45 TSH 0.63 uIU/ml (0.34-5.60) 01/16/19 18:45 Salicylates < 25.0 mg/L (30.0-100.0) L 01/16/19 18:45 Acetaminophen < 10.0 ug/mL (10.0-30.0) L 01/16/19 18:45 Ethyl Alcohol < 10 mg/dL (0-10) 01/16/19 18:45 - Physical Exam Vitals and I&O: Vital Signs Temp 97.8 F 01/21/19 06:36 Pulse 80 01/21/19 08:53 Resp 18 01/21/19 06:36 BP 125/64 01/21/19 08:53 Pulse Ox 96 01/21/19 06:36 Intake & Output 01/20/19 01/21/19 01/21/19 18:59 06:59 18:59 Intake Total 800 120 Balance 800 120 Intake: Oral 800 120 Other: # Voids 3 3 # Bowel Movements 0 Active Medications: Current Medications Acetaminophen (Tylenol) 650 mg PO Q4HR PRN PRN Reason: Mild Pain / Temp above 100 Stop: 03/17/19 21:36 Al Hydrox/Mg Hydrox/Simethicone (Maalox) 30 ml PO Q4HR PRN PRN Reason: GI DISTRESS Stop: 03/17/19 21:36 Amantadine HCl (Symmetrel) 100 mg PO DAILY [facility] Stop: 03/18/19 08:59 Last Admin: 01/21/19 08:53 Dose: 100 mg Benztropine Mesylate (Cogentin) 0.5 mg PO BID [facility] Stop: 03/18/19 08:59 Last Admin: 01/21/19 08:54 Dose: 0.5 mg Bisacodyl (Dulcolax 10 Mg Supp) 10 mg RC DAILY PRN PRN Reason: IF MOM INEFFECTIVE Stop: 03/17/19 21:46 Carbidopa/Levodopa (Sinemet 25mg-100 Mg) 1 tab PO TID [facility] Stop: 03/18/19 08:59 Last Admin: 01/21/19 08:55 Dose: 1 tab Docusate Sodium (Colace) 100 mg PO BID [facility] Stop: 03/18/19 08:59 Last Admin: 01/21/19 08:55 Dose: 100 mg Gabapentin (Neurontin) 300 mg PO TID [facility] Stop: 03/18/19 08:59 Last Admin: 01/21/19 08:55 Dose: 300 mg Lacosamide (Vimpat) 200 mg PO BID [facility] Stop: 03/18/19 08:59 Last Admin: 01/21/19 08:55 Dose: 200 mg Levetiracetam (Keppra) 1,500 mg PO BID [facility] Stop: 03/18/19 08:59 Last Admin: 01/21/19 08:52 Dose: 1,500 mg Levothyroxine Sodium (Synthroid) 0.088 mg PO QDAC [facility] Stop: 03/18/19 07:29 Last Admin: 01/21/19 06:45 Dose: 0.088 mg Loratadine (Claritin) 10 mg PO DAILY [facility] Stop: 03/18/19 08:59 Last Admin: 01/21/19 08:54 Dose: 10 mg Lorazepam (Ativan) 0.5 mg PO Q4HR PRN; Protocol PRN Reason: Agitation Stop: 02/15/19 21:36 Magnesium Hydroxide (Milk Of Magnesia) 30 ml PO HS PRN PRN Reason: Constipation Memantine (Namenda) 10 mg PO BID [facility] Stop: 03/20/19 08:59 Last Admin: 01/21/19 08:53 Dose: 10 mg Metoprolol Tartrate (Lopressor) 12.5 mg PO Q12HR [facility] Stop: 03/18/19 08:59 Last Admin: 01/21/19 08:53 Dose: 12.5 mg Risperidone (Risperdal) 0.5 mg PO DAILY [facility]; Protocol Stop: 03/18/19 08:59 Last Admin: 01/21/19 08:54 Dose: 0.5 mg Risperidone (Risperdal) 1 mg PO HS [facility]; Protocol Stop: 03/18/19 20:59 Last Admin: 01/20/19 20:58 Dose: 1 mg Zolpidem Tartrate (Ambien) 5 mg PO HS PRN PRN Reason: Insomnia General: alert HEENT: NC/AT Neck: Supple, No JVD, No thyromegaly, No LAD Lungs: CTAB, no congested Cardiovascular: RRR, Normal S1, Normal S2, without murmur Abdomen: soft, non-tender, tender, thin, non-distended, positive bowel sound Extremities: clear Neurological: no change Internal Medicine Assmt/Plan - Assessment Assessment: ACUTE PSYCH DECOMPENSATION HX OF BIPOLAR DO ESSENTIAL HTN-stable. HISTORY OF PARKINSON'S DZ LEGALLY BLIND HISTORY OF ILEUS HISTORY OF DEMENTIA HISTORY OF HYPOTHYROIDISM - Plan Plan: CONT WITH CURRENT INPT PSYCH SUPPORTIVE CARE AND MGT CONT WITH OTHER MEDS SCHEDULED Nutritional Asmnt/Malnutr-PDOC - Dietary Evaluation Malnutrition Findings (Please click <Entered> for more info): Nutritional Asmnt/Malnutrition Start: 01/19/19 11: 29 Text: Status: Complete Freq: Protocol: Document 01/19/19 11:30 RBENDA (Rec: 01/19/19 11:35 BRENDA [email or web address]) Nutritional Asmnt/Malnutrition Patient General Information Nutritional Screening Moderate Risk Diagnosis Psychosis Pertinent Medical Hx/Surgical Hx HTN, Seizures Subjective Information Pt is a 68-year-old female admitted on 01/16 c/o depression and decreased activity x 2 days. Per Meal/ Nutrition Activity Record, Pt PO intake 70% meals x 2 days. HT: 53 WT: 235 LB (106.82 kg) ADJ BW: 74.17 kg BMI: 41.63 (Morbid Obese) GI: Soft, Non-Tender BM: 01/18 x1 I/O: 1070/Not Noted Skin: WNL, Intact Sascha: 20 Diet Order: Mechanical Soft, TONYA Estimated Energy Needs: (Obese III, CBW) 8849-1061 kcals (20-25 kcals/ kg) 59-67g Pro (0.8-0.9 g/kg) 4821-2841 ml (25-30 ml/kg) Pt PO intake 70% meals x 2 days Per Meal/Nutrition Activity Record. Dietary is currently providing an estimated 2289 kcals and 114 gm Pro, per Pt PO intake this is providing an estimated 1600 kcals and 80 gm Pro to meet 100% kcal and 100+% Pro needs- Adequate. Current Diet Order/ Nutrition Support Mechanical Soft, TONYA Pertinent Medications Maalox (PRN), Dulcolax (PRN), Colace, Keppra, Synthroid, MOM (PRN), Lopressor Pertinent Labs 01/16: Hgb/Hct 12.8/38.4, BUN/ Cr 11/0.5, Glucose 112, Alb 3. 4 Nutritional Hx/Data Height 1.6 m Height (Calculated Centimeters) 160.0 Current Weight (lbs) 106.594 kg Weight (Calculated Kilograms) 106.6 Weight (Calculated Grams) 558084.2 [place] Body Weight 52.4 kg % [place] Body Weight 204 Body Mass Index (BMI) 41.6 Weight Status Morbidly Obese GI Symptoms GI Symptoms None Skin Integrity/Comment: WNL, Intact Sascha: 20 Current %PO Fair (50-74%) Estimated Nutritional Goals BEE in Kcals: Adj wt of IBW Calories/Kcals/Kg 20-25 Kcals Calculated 6698-7929 Protein: Adj wt of IBW Protein g/k.8-0.9 Protein Calculated 59-67 Fluid: ml 1157-4649 ml (25-30 ml/kg) Nutritional Problem No current Nutrition Prob Problem N/A Etiology N/A Signs/Symptoms: N/A Malnutrition Related to Morbid Obesity Malnutrition related to morbid obesity No Intervention/Recommendation Comments 1.Continue with mechanical soft, TONYA diet as ordered. Expected Outcomes/Goals Expected Outcomes/Goals 1.PO intake to continue to meet 75% of nutritional needs. 2.Monitor PO intake, wt, nutrition related labs, and skin integrity. 3.F/U as low risk in 7 days,
--- NOTE | 2019-01-21 21:29 | Progress Notes ---
DATE: 01/21/2019 SUBJECTIVE: The patient in the hospital, apparently blind, confused, history of depression, does not know why she is in the hospital. The patient continues to not know why she is in the hospital, remains disoriented, minimally interactive, socially withdrawn, mostly keeps to self, tired on exam. Concerns for ongoing symptoms, psychotic symptoms, but it is difficult to fully assess. Poor orientation, isolative, keeps to self, concerns about ongoing depressive symptoms, melancholy. Concerns about impulsivity, acting out behaviors. PLAN: We will continue to monitor, titrate and adjust medications. Medications were reviewed. [facility]# [id number] [id number]
[2019-01-22] MEDS: Levothyroxine 0.088 Mg Tab PO SCH (06:39)
--- NOTE | 2019-01-22 07:07 | Discharge Summary ---
DATE OF DISCHARGE: 01/22/2019 AGE: 68. SEX: Female. PHYSICIAN: Dr. Pearl. FINAL DIAGNOSIS AND PRIMARY DIAGNOSIS: Unspecified psychosis. SECONDARY DIAGNOSIS: Dementia, moderate, with psychotic features and behavioral disturbances. REASON FOR HOSPITALIZATION: The patient was admitted to the hospital from [facility] because of depression and also because of increased agitation. The patient also was not able to follow directions. HOSPITAL COURSE: The patient was anxious and confused upon admission. The patient also was withdrawn and interacting minimally with others and stays in her room most of the time, most probably because of her being legally blind. She also was interacting minimally with others and she was having difficulty expressing herself. The patient was given Risperdal and the dose adjusted to 0.5 mg in the morning and 1 mg at bedtime and she continued to take Neurontin, Namenda, and Cogentin. Gradually, the patient's affect was brighter. The patient was less irritable and less agitated. The patient was discharged back to [facility]. PHYSICAL EXAMINATION: Physical examination showed the patient is legally blind, but no major medical problems while in the hospital. AFTER DISCHARGE PLANS: The patient discharged from the hospital back to [facility] with plans to follow her up there. EXPECTED OUTCOME AFTER DISCHARGE: Fair if the patient continues with taking her medications and follow up with discharge plans. [facility]# [id number] [id number]
[2019-01-22] MEDS: Multivitamin w/ Minerals Tab PO SCH (08:54)
--- NOTE | 2019-01-22 09:53 | Internal Medicine Prog Note ---
Internal Medicine Subjective - Subjective Service Date: 01/22/19 (comfortable) Patient seen and examined:: without staff Patient is:: awake Per staff patient has:: no adverse event Internal Medicine Objective - Results Result Diagrams: 01/16/19 18:45 01/16/19 18:45 Recent Labs: Laboratory Last Values WBC 6.3 Th/cmm (4.8-10.8) 01/16/19 18:45 RBC 4.35 Mil/cmm (3.80-5.20) 01/16/19 18:45 Hgb 12.8 gm/dL (12-16) 01/16/19 18:45 Hct 38.4 % (41.0-60) L 01/16/19 18:45 MCV 88.2 fl (81-100) 01/16/19 18:45 MCH 29.4 pg (27.0-31.0) 01/16/19 18:45 MCHC Differential 33.4 pg (28.0-36.0) 01/16/19 18:45 RDW 12.7 % (11.5-20.0) 01/16/19 18:45 Plt Count 256 Th/cmm (150-400) 01/16/19 18:45 MPV 8.8 fl 01/16/19 18:45 Neutrophils % 60.9 % (40.0-80.0) 01/16/19 18:45 Lymphocytes % 26.1 % (20.0-50.0) 01/16/19 18:45 Monocytes % 7.6 % (2.0-10.0) 01/16/19 18:45 Eosinophils % 5.1 % (0.0-5.0) H 01/16/19 18:45 Basophils % 0.3 % (0.0-2.0) 01/16/19 18:45 Sodium 138 mEq/L (136-145) 01/16/19 18:45 Potassium 3.7 mEq/L (3.5-5.1) 01/16/19 18:45 Chloride 104 mEq/L (98-107) 01/16/19 18:45 Carbon Dioxide 27.1 mEq/L (21.0-31.0) 01/16/19 18:45 Anion Gap 10.6 (7.0-16.0) 01/16/19 18:45 BUN 11 mg/dL (7-25) 01/16/19 18:45 Creatinine 0.5 mg/dL (0.6-1.2) L 01/16/19 18:45 Est GFR ( Amer) > 60.0 ml/min (>90) 01/16/19 18:45 Est GFR (Non-Af Amer) > 60.0 ml/min 01/16/19 18:45 BUN/Creatinine Ratio 22.0 01/16/19 18:45 Glucose 112 mg/dL (70-105) H 01/16/19 18:45 Calcium 8.9 mg/dL (8.6-10.3) 01/16/19 18:45 Total Bilirubin 0.2 mg/dL (0.3-1.0) L 01/16/19 18:45 AST 12 U/L (13-39) L 01/16/19 18:45 ALT 5 U/L (7-52) L 01/16/19 18:45 Alkaline Phosphatase 103 U/L (34-104) 01/16/19 18:45 Troponin I < 0.01 ng/mL (0.01-0.05) L 01/16/19 18:45 Total Protein 6.6 gm/dL (6.0-8.3) 01/16/19 18:45 Albumin 3.4 gm/dL (3.7-5.3) L 01/16/19 18:45 Globulin 3.2 gm/dL 01/16/19 18:45 Albumin/Globulin Ratio 1.1 (1.0-1.8) 01/16/19 18:45 Triglycerides 87 mg/dL (<150) 01/16/19 18:45 Cholesterol 155 mg/dL (<200) 01/16/19 18:45 LDL Cholesterol Direct 91 mg/dL (75-193) 01/16/19 18:45 HDL Cholesterol 54 mg/dL (23-92) 01/16/19 18:45 TSH 0.63 uIU/ml (0.34-5.60) 01/16/19 18:45 Salicylates < 25.0 mg/L (30.0-100.0) L 01/16/19 18:45 Acetaminophen < 10.0 ug/mL (10.0-30.0) L 01/16/19 18:45 Ethyl Alcohol < 10 mg/dL (0-10) 01/16/19 18:45 - Physical Exam Vitals and I&O: Vital Signs Temp 97.8 F 01/22/19 06:42 Pulse 70 01/22/19 08:56 Resp 18 01/22/19 06:42 BP 119/69 01/22/19 08:56 Pulse Ox 97 01/22/19 06:42 Intake & Output 01/21/19 01/22/19 01/22/19 18:59 06:59 18:59 Intake Total 1200 120 Balance 1200 120 Intake: Oral 1200 120 Other: # Voids 3 # Bowel Movements 1 Active Medications: Current Medications Acetaminophen (Tylenol) 650 mg PO Q4HR PRN PRN Reason: Mild Pain / Temp above 100 Stop: 03/17/19 21:36 Al Hydrox/Mg Hydrox/Simethicone (Maalox) 30 ml PO Q4HR PRN PRN Reason: GI DISTRESS Stop: 03/17/19 21:36 Amantadine HCl (Symmetrel) 100 mg PO DAILY REPLACED BY [facility] Stop: 03/18/19 08:59 Last Admin: 01/22/19 08:54 Dose: 100 mg Benztropine Mesylate (Cogentin) 0.5 mg PO BID REPLACED BY [facility] Stop: 03/18/19 08:59 Last Admin: 01/22/19 08:54 Dose: 0.5 mg Bisacodyl (Dulcolax 10 Mg Supp) 10 mg RC DAILY PRN PRN Reason: IF MOM INEFFECTIVE Stop: 03/17/19 21:46 Carbidopa/Levodopa (Sinemet 25mg-100 Mg) 1 tab PO TID REPLACED BY [facility] Stop: 03/18/19 08:59 Last Admin: 01/22/19 08:54 Dose: 1 tab Docusate Sodium (Colace) 100 mg PO BID REPLACED BY [facility] Stop: 03/18/19 08:59 Last Admin: 01/22/19 08:54 Dose: 100 mg Gabapentin (Neurontin) 300 mg PO TID REPLACED BY [facility] Stop: 03/18/19 08:59 Last Admin: 01/22/19 08:54 Dose: 300 mg Lacosamide (Vimpat) 200 mg PO BID REPLACED BY [facility] Stop: 03/18/19 08:59 Last Admin: 01/22/19 08:53 Dose: 200 mg Levetiracetam (Keppra) 1,500 mg PO BID REPLACED BY [facility] Stop: 03/18/19 08:59 Last Admin: 01/22/19 08:53 Dose: 1,500 mg Levothyroxine Sodium (Synthroid) 0.088 mg PO QDAC REPLACED BY [facility] Stop: 03/18/19 07:29 Last Admin: 01/22/19 06:39 Dose: 0.088 mg Loratadine (Claritin) 10 mg PO DAILY REPLACED BY [facility] Stop: 03/18/19 08:59 Last Admin: 01/22/19 08:54 Dose: 10 mg Lorazepam (Ativan) 0.5 mg PO Q4HR PRN; Protocol PRN Reason: Agitation Stop: 02/15/19 21:36 Magnesium Hydroxide (Milk Of Magnesia) 30 ml PO HS PRN PRN Reason: Constipation Memantine (Namenda) 10 mg PO BID REPLACED BY [facility] Stop: 03/20/19 08:59 Last Admin: 01/22/19 08:54 Dose: 10 mg Metoprolol Tartrate (Lopressor) 12.5 mg PO Q12HR GABBY Stop: 03/18/19 08:59 Last Admin: 01/22/19 08:56 Dose: 12.5 mg Risperidone (Risperdal) 0.5 mg PO DAILY REPLACED BY [facility]; Protocol Stop: 03/18/19 08:59 Last Admin: 01/22/19 08:54 Dose: 0.5 mg Risperidone (Risperdal) 1 mg PO HS GABBY; Protocol Stop: 03/18/19 20:59 Last Admin: 01/21/19 21:17 Dose: 1 mg Zolpidem Tartrate (Ambien) 5 mg PO HS PRN PRN Reason: Insomnia General: alert, obese, NAD HEENT: NC/AT Neck: Supple, No JVD, No thyromegaly, No LAD Lungs: CTAB, no congested Cardiovascular: RRR, Normal S1, Normal S2, without murmur Abdomen: soft, non-tender, tender, thin, non-distended, positive bowel sound Extremities: clear Neurological: no change Internal Medicine Assmt/Plan - Assessment Assessment: ACUTE PSYCH DECOMPENSATION HX OF BIPOLAR DO ESSENTIAL HTN-stable. HISTORY OF PARKINSON'S DZ LEGALLY BLIND HISTORY OF ILEUS HISTORY OF DEMENTIA HISTORY OF HYPOTHYROIDISM - Plan Plan: CONT WITH CURRENT INPT PSYCH SUPPORTIVE CARE AND MGT CONT WITH OTHER MEDS SCHEDULED Nutritional Asmnt/Malnutr-PDOC - Dietary Evaluation Malnutrition Findings (Please click <Entered> for more info): Nutritional Asmnt/Malnutrition Start: 01/19/19 11: 29 Text: Status: Complete Freq: Protocol: Document 01/19/19 11:30 BRENDA (Rec: 01/19/19 11:35 BRENDA [email or web address]) Nutritional Asmnt/Malnutrition Patient General Information Nutritional Screening Moderate Risk Diagnosis Psychosis Pertinent Medical Hx/Surgical Hx HTN, Seizures Subjective Information Pt is a 68-year-old female admitted on 01/16 c/o depression and decreased activity x 2 days. Per Meal/ Nutrition Activity Record, Pt PO intake 70% meals x 2 days. HT: 53 WT: 235 LB (106.82 kg) ADJ BW: 74.17 kg BMI: 41.63 (Morbid Obese) GI: Soft, Non-Tender BM: 01/18 x1 I/O: 1070/Not Noted Skin: WNL, Intact Sascha: 20 Diet Order: Mechanical Soft, TONYA Estimated Energy Needs: (Obese III, CBW) 5655-5833 kcals (20-25 kcals/ kg) 59-67g Pro (0.8-0.9 g/kg) 7735-8236 ml (25-30 ml/kg) Pt PO intake 70% meals x 2 days Per Meal/Nutrition Activity Record. Dietary is currently providing an estimated 2289 kcals and 114 gm Pro, per Pt PO intake this is providing an estimated 1600 kcals and 80 gm Pro to meet 100% kcal and 100+% Pro needs- Adequate. Current Diet Order/ Nutrition Support Mechanical Soft, TONYA Pertinent Medications Maalox (PRN), Dulcolax (PRN), Colace, Keppra, Synthroid, MOM (PRN), Lopressor Pertinent Labs 01/16: Hgb/Hct 12.8/38.4, BUN/ Cr 11/0.5, Glucose 112, Alb 3. 4 Nutritional Hx/Data Height 1.6 m Height (Calculated Centimeters) 160.0 Current Weight (lbs) 106.594 kg Weight (Calculated Kilograms) 106.6 Weight (Calculated Grams) 780993.2 [place] Body Weight 52.4 kg % [place] Body Weight 204 Body Mass Index (BMI) 41.6 Weight Status Morbidly Obese GI Symptoms GI Symptoms None Skin Integrity/Comment: WNL, Intact Sascha: 20 Current %PO Fair (50-74%) Estimated Nutritional Goals BEE in Kcals: Adj wt of IBW Calories/Kcals/Kg 20-25 Kcals Calculated 4888-0505 Protein: Adj wt of IBW Protein g/k.8-0.9 Protein Calculated 59-67 Fluid: ml 4656-9414 ml (25-30 ml/kg) Nutritional Problem No current Nutrition Prob Problem N/A Etiology N/A Signs/Symptoms: N/A Malnutrition Related to Morbid Obesity Malnutrition related to morbid obesity No Intervention/Recommendation Comments 1.Continue with mechanical soft, TONYA diet as ordered. Expected Outcomes/Goals Expected Outcomes/Goals 1.PO intake to continue to meet 75% of nutritional needs. 2.Monitor PO intake, wt, nutrition related labs, and skin integrity. 3.F/U as low risk in 7 days,
== END 2019-01-22 11:45 | DRG 885 ==
LOC: ER 18:07 → GERO2 19:20 → GERO 20:00
PROVIDERS: ADMIT Psychiatry & Neurology Psychiatry; ATTEND Psychiatry & Neurology Psychiatry
DX: F29 Unspecified psychosis not due to a substance or known physiological condition (principal); F03.91 Unspecified dementia, unspecified severity, with behavioral disturbance; F32.9 Major depressive disorder, single episode, unspecified; I10 Essential (primary) hypertension; G20 Parkinson's disease; E03.9 Hypothyroidism, unspecified; G40.909 Epilepsy, unspecified, not intractable, without status epilepticus; H54.8 Legal blindness, as defined in USA; Z79.899 Other long term (current) drug therapy
CPT/HCPCS: 36415-UA; 80053-TC; 80061-TC; 80320-TC; 80329-TC; 83036-90; 84443-TC; 84484-TC; 85025-TC; 86592-TC; 93005; Z7610